=== PATIENT | female | born 1965 | race Caucasian/White ===

== ENCOUNTER → 2016-10-09 | Outpatient (CLI) | payer BC ==
--- NOTE | 2016-10-09 11:59 | USB ---
Reason for exam: follow-up at short interval from prior study. History: Took hormonal contraceptives for 15 years beginning at age 20. Physical Findings: Nurse did not find any significant physical abnormalities on exam. US Breast RT Right breast ultrasound includes all four quadrants, the retroareolar region and axilla. Finding demonstrates a 0.4 x 0.4 x 0.2cm oval lesion too small to characterize at 8 o'clock, a 0.2 x 0.2 x 0.1cm oval lesion too small to characterize at 9 o'clock, a 0.4 x 0.5 x 0.3cm oval, cystic lesion at 9 o'clock, a 0.7 x 0.6 x 0.4cm oval, irregular, lipoma at 11 o'clock, a 0.3 x 0.2 x 0.1cm oval lesion too small to characterize at 11:30 and a 0.4 x 0.3 x 0.4cm round, cystic lesion at the posterior nipple. These results were verbally communicated with the patient and result sheet given to the patient on 10/09/16. ASSESSMENT: Probably benign, BI-RAD 3 RECOMMENDATION: Follow-up diagnostic mammogram of both breasts in 3 months. Back on schedule for December 2016.
== END | disposition home or self-care (01) ==
LOC: RADUSWWP 10:32
PROVIDERS: ATTEND Obstetrics & Gynecology
DX: R92.8 Other abnormal and inconclusive findings on diagnostic imaging of breast (principal)

== ENCOUNTER → 2017-01-04 | Outpatient (CLI) | payer BC ==
--- NOTE | 2017-01-05 08:22 | BD ---
EXAMINATION TYPE: MG DEXA axial skeleton. DATE OF EXAM: 01/04/2017 COMPARISON: NONE CLINICAL HISTORY: PT IS A 51 YR OLD FEMALE....ICD-10 CODE: M95.1 POST MENOPAUSAL SYMPTOMS Height: 64.5 Weight: 146 FRAX RISK QUESTIONS: Alcohol (3 or more units per day): NO Family History (Parent hip fracture): NO Glucocorticoids (More than 3mos): NO (Ex: prednisone, prednisolone, methylprednisolone, dexamethasone, and hydrocortisone). History of Fracture in Adulthood: NO Secondary Osteoporosis: NO 1. Type 1 Diabetes: NO 2. Hyperthyroidism: NO 3. Menopause before 45: NO 4. Malnutrition: NO 5. Chronic liver disease: NO Rheumatoid Arthritis: NO Current Tobacco Use: NO RISK FACTORS HISTORY OF: Family History of Osteoporosis: NONE KNOWN Active: YES Diet low in dairy products/other sources of calcium: NO Postmenopausal woman: AT AGE 50 Take estrogen and/or progesterone medications: BIO IDENTICAL PELLETS, AND PROGESTERONE TABLETS How lon YR Hyperparathyroidism: NO Adrenal Insufficiency: NO MEDICATIONS: Additional Medications: VIT D, XANAX Additional History: SLEEP AID EXAM MEASUREMENTS: Bone mineral densitometry was performed using the [employer] System. Bone mineral density as measured about the Lumbar spine is: ----- L1-L4(G/cm2): 1.262 T Score Values are as follows: ----- L1: 0.4 ----- L2: 0.0 ----- L3: 0.5 ----- L4: 1.3 ----- L1-L4: 0.7 Bone mineral density THIS IS HER FIRST BONE DENSITY TEST....BASELINE STUDY Bone mineral density about the R hip (g/cm2): 1.021 Bone mineral density about the L hip (g/cm2): 1.056 T Score values are as follows: -----R Neck: -0.1 -----L Neck: -0.4 -----R Total: 0.1 -----L Total: 0.4 Bone mineral density BASELINE STUDY FRAX%'S: THERE IS A 4.2% CHANCE OF A MAJOR OSTEOPOROTIC FX AND A 0.1% FOR A HIP FX.....PROBABILITY OF FX IN 10 YRS TIME IMPRESSION: Normal (Values between +1 and -1 indicate normal bone mass). Consider repeating this study in 5 year s or sooner if there is some new clinical indication. NOTE: T-SCORE=SD OF THE YOUNG ADULT MEAN.
--- NOTE | 2017-01-05 08:35 | MM ---
Reason for exam: additional evaluation requested from prior study. Last mammogram was performed 1 year ago. History: Took hormonal contraceptives for 15 years beginning at age 20. Physical Findings: Nurse did not find any significant physical abnormalities on exam. MG 3D Diag Mammo W/Cad HAIDER Bilateral CC and MLO view(s) were taken. Prior study comparison: December 29, 2015, bilateral MG 3d screening mammo w/cad. August 18, 2014, bilateral MG screening mammo w CAD. The breast tissue is heterogeneously dense. This may lower the sensitivity of mammography. No suspicious abnormality. Previously seen mammographic focal asymmetry of the upper outer right breast is less conspicuous. No significant new findings when compared with previous films. These results were verbally communicated with the patient and result sheet given to the patient on 01/04/17. ASSESSMENT: Incomplete: need additional imaging evaluation, BI-RAD 0 RECOMMENDATION: Ultrasound of the right breast. (8-12 o'clock axilla for comparison of prior Bi-Rad 3 sonographic findings)
--- NOTE | 2017-01-05 08:41 | USB ---
Reason for exam: additional evaluation requested from abnormal screening. History: Took hormonal contraceptives for 15 years beginning at age 20. US Breast Limited RT Right breast ultrasound demonstrates a 0.4 x 0.3 x 0.3cm lesion too small to characterize at 8 o'clock, a 0.3 x 0.1 x 0.3cm lesion too small to characterize at 9 o clock and a 0.3 x 0.2 x 0.3cm lesion too small to characterize at 11 o'clock, suspicious taller than wide, hypoechoic, biopsy recommended. These results were verbally communicated with the patient and result sheet given to the patient on 01/04/17. ASSESSMENT: Suspicious, BI-RAD 4 RECOMMENDATION: Ultrasound core biopsy of the right breast. (11 o'clock) Called Dr. Ny with mammographic findings and has scheduled an appointment with Dr. Mosqueda. Biopsy scheduled for 01/15/17 at 12:20. PRELIMINARY REPORT CALLED AND FAXED TO DR. MOSQUEDA ON 01/04/17.
== END | disposition home or self-care (01) ==
LOC: RADMAMWWP 14:44
PROVIDERS: ATTEND Family Medicine
DX: R92.8 Other abnormal and inconclusive findings on diagnostic imaging of breast (principal); N95.1 Menopausal and female climacteric states
CPT/HCPCS: 77080; 76642; G0204; G0279

== ENCOUNTER → 2017-01-15 | Day surgery (SDC) | payer BC ==
[2017-01-15 11:48] VITALS: BP 135/77; PULSE 71; RESP 16; TEMP 98.3; BMI 25.0
--- NOTE | 2017-01-15 16:51 | USB ---
EXAMINATION TYPE: US discontinued breast bx RT DATE OF EXAM: 01/15/2017 CLINICAL HISTORY: 51-year-old female R92.8 ABNORMAL MAMMOGRAM. COMPARISON: 01/04/2017 and 10/09/2016 TECHNIQUE AND FINDINGS: The procedure of ultrasound guided core biopsy was explained to the patient. Benefits, alternatives, and risks were discussed. An informed consent was then obtained. The patient was placed in supine positioning for imaging and for the procedure. However, the 11:00 deep breast lesion measuring 3 x 2 mm was identified and during real-time scanning in the antiradial plane has a cystic appearance. Findings were discussed with the patient and biopsy was not performed. Six-month follow-up is recommended for assessment of the other 2 small to characterize lesion seen on 01/04/2017. Stability of this 11:00 lesion can also be ensured at that time. IMPRESSION: During real-time scanning, the 11:00 right breast lesion had a benign, cystic appearance. Overall BI-RADS assessment: BI-RADS 3-probably benign RECOMMENDATION: 1. Six-month follow-up right breast ultrasound, at which time, the other small lesions seen in the ri ght breast can be reassessed.
== END ==
LOC: RADUSWWP 11:26
PROVIDERS: ATTEND Surgery
DX: R92.8 Other abnormal and inconclusive findings on diagnostic imaging of breast (principal); Z53.8 Procedure and treatment not carried out for other reasons

== ENCOUNTER → 2017-08-06 | Outpatient (CLI) | payer BC ==
--- NOTE | 2017-08-06 11:12 | USB ---
Reason for exam: follow-up at short interval from prior study. History: US discontinued breast bx RT of the right breast, January 15, 2017. Took hormonal contraceptives for 15 years beginning at age 20. Physical Findings: Nurse Summary: all soft, nodular, movable bilateral tissue (nurse ts). US Breast RT Right complete breast ultrasound includes all four quadrants, the retroareolar region and axilla. Finding demonstrates a 0.4 x 0.3 x 0.3cm lesion too small to characterize at 8 o'clock stable from 01/04/17, a 0.3 x 0.3 x 0.3cm lesion too small to characterize at 8 o'clock probably cystic, a 0.3 x 0.3 x 0.3cm lesion too small to characterize at 11 o'clock versus 2 x 3 x 3mm on 01/04/17, not significantly change, additional 6 month follow up recommended and a 0.4 x 0.4 x 0.4cm cystic, benign lesion at the posterior nipple. These results were verbally communicated with the patient and result sheet given to the patient on 08/06/17. ASSESSMENT: Probably benign, BI-RAD 3 RECOMMENDATION: Follow-up diagnostic mammogram of both breasts in 6 months. Ultrasound of the right breast in 6 months. (particular attention 11 o'clock)
== END | disposition home or self-care (01) ==
LOC: RADUSWWP 10:11
PROVIDERS: ATTEND Obstetrics & Gynecology
DX: R92.8 Other abnormal and inconclusive findings on diagnostic imaging of breast (principal)

== ENCOUNTER → 2018-01-31 | Outpatient (CLI) | payer BC ==
--- NOTE | 2018-02-01 09:58 | MM ---
Reason for exam: additional evaluation requested from abnormal screening. Last mammogram was performed 1 year and 1 month ago. History: US discontinued breast bx RT of the right breast, January 15, 2017. Took hormonal contraceptives for 15 years beginning at age 20. Physical Findings: Nurse did not find any significant physical abnormalities on exam. MG 3D Diag Mammo W/Cad HAIDER Bilateral CC and MLO view(s) were taken. XCCL view(s) were taken of the left breast. Prior study comparison: January 04, 2017, bilateral MG 3d diag mammo w/cad HAIDER. December 29, 2015, bilateral MG 3d screening mammo w/cad. There are benign appearing round calcifications in the left breast. There is no discrete abnormality. These results were verbally communicated with the patient and result sheet given to the patient on 01/31/18. ASSESSMENT: Benign, BI-RAD 2 RECOMMENDATION: Routine screening mammogram of both breasts in 1 year.
--- NOTE | 2018-02-01 10:01 | USB ---
Reason for exam: follow-up at short interval from prior study. History: US discontinued breast bx RT of the right breast, January 15, 2017. Took hormonal contraceptives for 15 years beginning at age 20. US Breast RT Right complete breast ultrasound includes all four quadrants, the retroareolar region and axilla. Finding demonstrates a 4 x 4 x 4mm lobular, cystic, mixed lesion too small to characterize at 2 o'clock, questionable cystic cluster, not clearly seen previously, a 3 x 2 x 3mm oval, cystic, stable lesion at 8 o'clock, a 3 x 2 x 2mm oval, cystic, stable lesion at 9 o'clock, a 3 x 2 x 2mm oval, cystic, stable lesion at 11 o'clock and a 4 x 3 x 3mm oval, cystic, stable lesion at the posterior nipple. These results were verbally communicated with the patient and result sheet given to the patient on 01/31/18. ASSESSMENT: Probably benign, BI-RAD 3 RECOMMENDATION: Ultrasound of the right breast in 6 months.
== END | disposition home or self-care (01) ==
LOC: RADMAMWWP 12:42
PROVIDERS: ATTEND Obstetrics & Gynecology
DX: R92.8 Other abnormal and inconclusive findings on diagnostic imaging of breast (principal)
CPT/HCPCS: 77062; 77066